=== PATIENT | male | born 1965 | race Caucasian/White ===

== ENCOUNTER 2017-05-17 11:44 | Emergency (ER) | payer OTHER, MEDICAID ==
[2017-05-17] MEDS: KETOROLAC 30 MG INJ IM (14:12)
== END 2017-05-17 14:53 | disposition home or self-care (01) ==
LOC: FTE 11:44
DX: R51 Headache (principal)
CPT/HCPCS: 70450; 96372; 99285-25

== ENCOUNTER 2017-05-30 10:59 | Emergency (ER) | payer OTHER ==
[2017-05-30] MEDS: BUPIVACAINE 0.25% (MPF) 10 ML 10 ML VIAL INJ (12:30)
[2017-05-30] MEDS: IBUPROFEN 800 MG TAB PO (12:42)
[2017-05-30] MEDS: BUPIVACAINE 0.25% (MPF) 30 ML INJ INJ (13:41)
== END 2017-05-30 13:48 | disposition home or self-care (01) ==
LOC: FTE 10:59
DX: G44.209 Tension-type headache, unspecified, not intractable (principal); M62.838 Other muscle spasm
CPT/HCPCS: 99283; Z7502

== ENCOUNTER 2017-10-07 09:15 | Emergency (ER) | payer OTHER ==
[2017-10-07] MEDS: METHYLPREDNISOLONE 125 MG INJ IV (10:19)
[2017-10-07] MEDS: CEFTRIAXONE 1 GM/50 ML (PMX) 50 ML IVPB (10:19)
[2017-10-07] MEDS: SOD CHLORIDE 0.9% 1,000 ML IV (10:19)
[2017-10-07] MEDS: morphine 4 MG/ML VIAL IV (10:20)
[2017-10-07 10:23] LABS: ADD MAN DIFF? NO
[2017-10-07 10:28] LABS: BASOPHILS % 0.3 % (0.0-2.0); EOSINOPHILS % 0.2 % (0.0-7.0); HEMATOCRIT 46.5 % (42.0-52.0); HEMOGLOBIN 15.7 g/dl (14.0-18.0); LYMPHOCYTES # 2.5 10^3/ul (0.8-2.9); LYMPHOCYTES % 20.9 % (15.0-51.0); MEAN CORPUSCULAR HEMOGLOBIN 29.5 pg (29.0-33.0); MEAN CORPUSCULAR HGB CONC 33.8 g/dl (32.0-37.0); MEAN CORPUSCULAR VOLUME 87.4 fl (82.0-101.0); MEAN PLATELET VOLUME 11.3 fl (7.4-10.4); MONOCYTE # 1.3 10^3/ul (0.3-0.9); NEUTROPHIL # 8.1 10^3/ul (1.6-7.5); NEUTROPHILS % 67.3 % (39.0-77.0); PLATELET COUNT 177 10^3/UL (140-415); RED BLOOD COUNT 5.32 10^6/ul (4.70-6.10); RED CELL DISTRIBUTION WIDTH 12.2 % (11.5-14.5)
[2017-10-07 10:44] LABS: LACTIC ACID 1.4 mmol/L (0.5-2.0)
[2017-10-07 10:45] LABS: ANION GAP 13 (8-16); BLOOD UREA NITROGEN 8 mg/dl (7-20); CARBON DIOXIDE 28 mmol/L (21-31); CHLORIDE 103 mmol/L (97-110); CREATININE 0.95 mg/dl (0.61-1.24); GLUCOSE 109 mg/dl (70-220); POTASSIUM 3.9 mmol/L (3.5-5.1); SODIUM 140 mmol/L (135-144)
[2017-10-07] MEDS: IOHEXOL 300MG/ML 150 ML BTL (11:26)
[2017-10-07] MEDS: SOD CHLORIDE 0.9% 100 ML (11:26)
== END 2017-10-07 12:33 | disposition home or self-care (01) ==
LOC: FTE 09:15
DX: H66.92 Otitis media, unspecified, left ear (principal); H60.92 Unspecified otitis externa, left ear; R51 Headache
CPT/HCPCS: 36415; 70450; 70486; 80048; 83605; 85025; 87040; 96365; 96366; 96375; 99285-25